=== PATIENT | male | born 1965 | race African-American/Black ===

== ENCOUNTER 2023-08-27 01:26 | Inpatient (IN) | payer MEDICAID, OTHER, SELFPAY ==
[2023-08-27] MEDS ORDERED: Heparin 10,000 UNITS/ 10 ML VIAL ONE (01:33)
[2023-08-27] MEDS ORDERED: Lidocaine 1% (PF) 30 ML VIAL ONE (01:33)
[2023-08-27] MEDS ORDERED: Nitroglycerin 50 MG/250 ML BOT 0 ML ONE (01:34)
[2023-08-27] MEDS ORDERED: Nitroglycerin 2% Ointment 1 INCH/1 GM Packet ONE (01:36)
[2023-08-27] MEDS ORDERED: Nitroglycerin 50 MG/250 ML BOT ONE (01:42)
[2023-08-27 01:44] LABS: Actual Bicarbonate (HCO3a) 19.2 mEq/L (22-28); Analyzer IN Cardio ER; Base Excess (BEa) -15.6 mEq/L (-2.0 to +3.0); Calcium, Ionized (arterial) 1.24 mmol/L (1.12-1.30); Carboxyhemoglobin (COHb) 0.4 gm% (0.0-3.0); Hematocrit-ABG 43 % (42.0-52.0); Hemoglobin (Hb) 14.5 g/dL (14.0-18.0); O2 Tension (PaO2), arterial 188.6 mmHg (80.0-100.0); Potassium - ABG Lab 5.28 mmol/L (3.70-5.30)
[2023-08-27 01:57] LABS: #Basophils 0.1 thou/uL (0.0-0.2); #Eosinphils 0.8 thou/uL (0.0-0.7); #Monocytes 1.5 thou/uL (0.11-0.59); #Neutrophils 7.6 thou/uL (1.40-6.50); %Basophils 0.4 % (0.0-1.0); %Eosinophils 4.3 % (0.0-10.0); %Lymphocytes 41.9 % (21.0-51.0); %Monocytes 7.9 % (0.0-10.0); %Neutrophils 41.3 % (42.0-75.0); Hematocrit 49.3 % (42.0-52.0); Hemoglobin 14.4 g/dL (14.0-18.0); Mean Corpuscular HGB CONC 29.2 g/dL (32.0-36.0); Mean Corpuscular Hemoglobin 25.8 pg (27.0-31.0); Mean Corpuscular Volume 88.4 fl (78.0-98.0); Mean Platelet Volume 11.5 fL (7.4-10.4); Platelet Count 315 10x3/uL (130-400); RBC Distribution Width 14.1 % (11.5-14.5); Red Blood Cell (RBC) Count 5.58 mill/uL (4.70-6.10); White Blood Cell (WBC) Count 18.4 10x3/uL (4.8-10.8)
[2023-08-27 02:09] LABS: INR-International Normal Ratio 1.2; Prothrombin Time 15.5 sec (12.0-14.7)
[2023-08-27 02:10] LABS: PTT 35.9 sec (22.9-36.1)
[2023-08-27] MEDS ORDERED: Furosemide 40 MG/4 ML VIAL ONE (02:11)
[2023-08-27 02:23] LABS: ALT (SGPT) 21 U/L (8-55); AST (SGOT) 22 U/L (5-34); Alkaline Phosphatase 99 U/L (40-110); Anion Gap 23 mmol/L (10-20); BUN (Urea Nitrogen) 41 mg/dL (8.4-25.7); Bilirubin, Total 0.3 mg/dL (0.2-1.2); Calc. Creatinine Clearance 0 mL/min (70-130); Calcium 8.2 mg/dL (7.8-10.44); Carbon Dioxide 19 mmol/L (22-29); Chloride 103 mmol/L (98-107); Estimated GFR 18; Globulin 3.2 g/dL (2.4-3.5); Glucose 230 mg/dL (70-105); Potassium 4.6 mmol/L (3.5-5.1); Protein, Total 8.2 g/dL (6.0-8.3); Sodium 140 mmol/L (136-145)
[2023-08-27 02:32] LABS: Troponin I 0.134 ng/mL (< 0.028)
[2023-08-27 02:45] LABS: Amphetamine Not Detected (NotDetected); Barbiturates Screen Not Detected (NotDetected); Benzodiazepine Screen Not Detected (NotDetected); Cocaine Metabolite Screen Not Detected (NotDetected); Methadone Not Detected (NotDetected); Methamphetamine Not Detected (NotDetected); Opiate Screen Not Detected (NotDetected); Oxycodone Screen Not Detected (NotDetected); Phencyclidine (PCP) Not Detected (NotDetected); THC/Cannabinoid Screen Not Detected (NotDetected); Tricyclic Screen Not Detected (NotDetected)
[2023-08-27 02:54] LABS: CK (CPK) 194 U/L (30-200); Lipase 35 U/L (8-78)
[2023-08-27 02:55] LABS: Acetaminophen Less than 10 mcg/mL (10.0-30.0); Alcohol Less than 10.0 mg/dL (Less than 10); Salicylate Less than 8.0 mg/dL (15.0-30.0)
[2023-08-27 03:21] LABS: SARS-CoV-2 NAA Rapid Test Not Detected (NotDetected)
[2023-08-27 03:23] LABS: Actual Bicarbonate (HCO3a) 20.5 mEq/L (22-28); Analyzer IN Cardio ER; Base Excess (BEa) -9.1 mEq/L (-2.0 to +3.0); Calcium, Ionized (arterial) 1.17 mmol/L (1.12-1.30); Carboxyhemoglobin (COHb) 0.3 gm% (0.0-3.0); Hematocrit-ABG 40 % (42.0-52.0); Hemoglobin (Hb) 13.6 g/dL (14.0-18.0); O2 Tension (PaO2), arterial 95.1 mmHg (80.0-100.0)
[2023-08-27] MEDS ORDERED: Fentanyl CADD 100 ML IV SCH (03:30)
[2023-08-27 03:46] LABS: CO2 Tension 97.8 mmHg (35.0-45.0)
[2023-08-27 03:47] LABS: CO2 Tension 61.6 mmHg (35.0-45.0); pH, Arterial 7.141 (7.35-7.45)
[2023-08-27 03:48] LABS: Potassium - ABG Lab 6.15 mmol/L (3.70-5.30)
[2023-08-27] MEDS ORDERED: Ondansetron PF 4 MG/2 ML Vial IVP PRN (04:23)
[2023-08-27] MEDS ORDERED: Ipratropium/Albuterol 3 ML NEB EZPAP PRN (04:27)
[2023-08-27 05:03] VITALS: BMI 30.5
[2023-08-27] MEDS: Azithromycin 500 MG in Sodium Chloride 0.9% 250 ML 250 ML IVPB SCH (05:30)
[2023-08-27] MEDS: cefTRIAXone\\ROCEPHIN 1 GM in Sodium Chloride 0.9% 100 ML IVPB SCH (05:33)
[2023-08-27 06:17] LABS: Anion Gap 18 mmol/L (10-20); BUN (Urea Nitrogen) 44 mg/dL (8.4-25.7); Calc. Creatinine Clearance 30 mL/min (70-130); Calcium 8.5 mg/dL (7.8-10.44); Carbon Dioxide 17 mmol/L (22-29); Chloride 107 mmol/L (98-107); Estimated GFR 17; Glucose 148 mg/dL (70-105); Magnesium 2.6 mg/dL (1.6-2.6); Potassium 5.8 mmol/L (3.5-5.1); Sodium 136 mmol/L (136-145)
[2023-08-27 06:24] LABS: Troponin I 0.374 ng/mL (< 0.028)
[2023-08-27 07:52] LABS: Actual Bicarbonate (HCO3a) 21.6 mEq/L (22-28); Base Excess (BEa) -2.3 mEq/L (-2.0 to +3.0); CO2 Tension 34.6 mmHg (35.0-45.0); Calcium, Ionized (arterial) 1.11 mmol/L (1.12-1.30); Carboxyhemoglobin (COHb) 0.5 gm% (0.0-3.0); Hematocrit-ABG 39 % (42.0-52.0); Hemoglobin (Hb) 13.2 g/dL (14.0-18.0); O2 Tension (PaO2), arterial 485.5 mmHg (80.0-100.0); pH, Arterial 7.414 (7.35-7.45)
[2023-08-27 07:54] LABS: Puncture Site RRA
[2023-08-27] MEDS ORDERED: Sodium Bicarb 50 MEQ/50 ML Abboject 8.4% SYRINGE IVP SCH (08:00)
[2023-08-27] MEDS ORDERED: Labetalol HCl 100 MG/20 ML VIAL SLOW IVP PRN (08:14)
[2023-08-27] MEDS ORDERED: niCARdipine 40MG In NaCl 40 MG/200 ML BAG IVPB SCH (08:30)
[2023-08-27] MEDS: Heparin 5,000 UNITS/ML VIAL SC SCH ×2 (08:36→21:16)
[2023-08-27] MEDS: Famotidine 20 MG TAB PER TUBE SCH (08:39)
[2023-08-27] MEDS: niCARdipine 50 MG, Admixture Fee 1 EACH in Sodium Chloride 0.9% 250 ML 230 ML IV SCH ×2 (08:44→21:42)
[2023-08-27] MEDS ORDERED: FLU VACC QS2023-24(6MOS UP)/PF 60 MCG/0.5 ML SYRINGE IM ONE (09:00)
[2023-08-27 09:06] LABS: Troponin I 0.583 ng/mL (< 0.028)
[2023-08-27 09:39] LABS: Bacteria/HPF None Seen HPF (None Seen); Bilirubin Negative (Negative); Blood, Urine Trace (Negative); Clarity Clear (Clear); Glucose, Urine (Dipstick) Normal (Negative); Ketone, Urine Negative (Negative); Leukocyte Negative Leu/uL (Negative); Nitrite Negative (Negative); Protein, Urine (Dipstick) Negative (Neg-Trace); RBC/HPF 0-3 HPF (0-3); Specific Gravity, Urine 1.008 (1.002-1.036); Squamous Epithelial None Seen HPF (0-3); Urobilinogen Normal mg/dL (Less than 2); WBC/HPF 0-3 HPF (0-3)
[2023-08-27 10:03] LABS: Creatinine, Urine 20.28 mg/dL (63-166)
[2023-08-27] MEDS ORDERED: Losartan 25 MG TAB PO SCH (10:30)
[2023-08-27] MEDS: hydrALAZINE 20 MG/ML VIAL SLOW IVP PRN ×2 (15:46→21:08)
[2023-08-27] MEDS: Carvedilol 6.25 MG TAB PO SCH (17:29)
[2023-08-27] MEDS: Acetaminophen 325 MG TAB PO PRN (21:49)
[2023-08-28] MEDS: niCARdipine 50 MG, Admixture Fee 1 EACH in Sodium Chloride 0.9% 250 ML 230 ML IV SCH ×4 (01:34→17:18)
[2023-08-28] MEDS: cefTRIAXone\\ROCEPHIN 1 GM in Sodium Chloride 0.9% 100 ML IVPB SCH (04:25)
[2023-08-28 04:59] LABS: #Monocytes 1.2 thou/uL (0.11-0.59); #Neutrophils 8.6 thou/uL (1.40-6.50); %Basophils 0.3 % (0.0-1.0); %Eosinophils 0.4 % (0.0-10.0); %Lymphocytes 11.3 % (21.0-51.0); %Monocytes 10.7 % (0.0-10.0); Hematocrit 41.2 % (42.0-52.0); Hemoglobin 13.4 g/dL (14.0-18.0); Mean Corpuscular HGB CONC 32.5 g/dL (32.0-36.0); Mean Corpuscular Hemoglobin 25.9 pg (27.0-31.0); Mean Corpuscular Volume 79.5 fl (78.0-98.0); Mean Platelet Volume 11.1 fL (7.4-10.4); Platelet Count 214 10x3/uL (130-400); RBC Distribution Width 14.4 % (11.5-14.5); Red Blood Cell (RBC) Count 5.18 mill/uL (4.70-6.10); White Blood Cell (WBC) Count 11.1 10x3/uL (4.8-10.8)
[2023-08-28 05:26] LABS: ALT (SGPT) 18 U/L (8-55); AST (SGOT) 22 U/L (5-34); Albumin 4.4 g/dL (3.5-5.0); Alkaline Phosphatase 65 U/L (40-110); Anion Gap 15 mmol/L (10-20); BUN (Urea Nitrogen) 37 mg/dL (8.4-25.7); Calc. Creatinine Clearance 38 mL/min (70-130); Calcium 9.3 mg/dL (7.8-10.44); Carbon Dioxide 24 mmol/L (22-29); Chloride 103 mmol/L (98-107); Estimated GFR 22; Globulin 2.8 g/dL (2.4-3.5); Glucose 138 mg/dL (70-105); Magnesium 2.2 mg/dL (1.6-2.6); Potassium 3.5 mmol/L (3.5-5.1); Protein, Total 7.2 g/dL (6.0-8.3); Sodium 138 mmol/L (136-145)
[2023-08-28] MEDS: Azithromycin 500 MG in Sodium Chloride 0.9% 250 ML 250 ML IVPB SCH (06:04)
[2023-08-28] MEDS: hydrALAZINE 20 MG/ML VIAL SLOW IVP PRN ×3 (06:17→17:32)
[2023-08-28] MEDS: Heparin 5,000 UNITS/ML VIAL SC SCH ×2 (08:03→20:46)
[2023-08-28] MEDS: Famotidine 20 MG TAB PER TUBE SCH (08:03)
[2023-08-28] MEDS: Carvedilol 6.25 MG TAB PO SCH ×2 (08:03→17:32)
[2023-08-28] MEDS ORDERED: Losartan 25 MG TAB PO SCH (09:00)
[2023-08-28] MEDS: Amlodipine 10 MG TAB PO SCH (09:06)
[2023-08-28] MEDS ORDERED: Carvedilol 6.25 MG TAB PO SCH (18:15)
[2023-08-29] MEDS: niCARdipine 50 MG, Admixture Fee 1 EACH in Sodium Chloride 0.9% 250 ML 230 ML IV SCH ×2 (00:51→08:31)
[2023-08-29 03:52] LABS: #Eosinphils 0.1 thou/uL (0.0-0.7); #Monocytes 1.3 thou/uL (0.11-0.59); #Neutrophils 7.9 thou/uL (1.40-6.50); %Basophils 0.3 % (0.0-1.0); %Eosinophils 0.6 % (0.0-10.0); %Lymphocytes 15.6 % (21.0-51.0); %Monocytes 11.6 % (0.0-10.0); %Neutrophils 71.4 % (42.0-75.0); Hematocrit 36.9 % (42.0-52.0); Hemoglobin 11.9 g/dL (14.0-18.0); Mean Corpuscular HGB CONC 32.2 g/dL (32.0-36.0); Mean Corpuscular Hemoglobin 25.9 pg (27.0-31.0); Mean Corpuscular Volume 80.4 fl (78.0-98.0); Platelet Count 219 10x3/uL (130-400); RBC Distribution Width 14.6 % (11.5-14.5); Red Blood Cell (RBC) Count 4.59 mill/uL (4.70-6.10); White Blood Cell (WBC) Count 11.1 10x3/uL (4.8-10.8)
[2023-08-29 04:19] LABS: ALT (SGPT) 17 U/L (8-55); AST (SGOT) 20 U/L (5-34); Albumin 4.1 g/dL (3.5-5.0); Alkaline Phosphatase 56 U/L (40-110); Anion Gap 15 mmol/L (10-20); BUN (Urea Nitrogen) 35 mg/dL (8.4-25.7); Bilirubin, Total 1.2 mg/dL (0.2-1.2); Calc. Creatinine Clearance 37 mL/min (70-130); Calcium 9.3 mg/dL (7.8-10.44); Carbon Dioxide 23 mmol/L (22-29); Chloride 102 mmol/L (98-107); Estimated GFR 22; Globulin 2.9 g/dL (2.4-3.5); Glucose 123 mg/dL (70-105); Magnesium 2.2 mg/dL (1.6-2.6); Potassium 3.5 mmol/L (3.5-5.1); Sodium 136 mmol/L (136-145)
[2023-08-29] MEDS: hydrALAZINE 20 MG/ML VIAL SLOW IVP PRN (06:48)
[2023-08-29] MEDS ORDERED: Carvedilol 6.25 MG TAB PO SCH ×3 (08:00→10:00)
[2023-08-29] MEDS: Amlodipine 10 MG TAB PO SCH (08:12)
[2023-08-29] MEDS: Heparin 5,000 UNITS/ML VIAL SC SCH ×2 (08:12→20:24)
[2023-08-29] MEDS: Famotidine 20 MG TAB PER TUBE SCH (08:12)
[2023-08-29] MEDS: cloNIDine 0.1 MG TAB PO SCH ×2 (09:08→20:57)
[2023-08-29] MEDS: Carvedilol 25 MG TAB PO SCH (17:13)
[2023-08-29] MEDS: cloNIDine 0.1 MG TAB PO PRN (17:50)
[2023-08-30 04:44] LABS: #Eosinphils 0.4 thou/uL (0.0-0.7); #Monocytes 0.9 thou/uL (0.11-0.59); %Basophils 0.1 % (0.0-1.0); %Eosinophils 5.2 % (0.0-10.0); %Lymphocytes 18.2 % (21.0-51.0); %Neutrophils 65.2 % (42.0-75.0); Hematocrit 34.9 % (42.0-52.0); Hemoglobin 11.3 g/dL (14.0-18.0); Mean Corpuscular HGB CONC 32.4 g/dL (32.0-36.0); Mean Corpuscular Hemoglobin 25.9 pg (27.0-31.0); Mean Corpuscular Volume 79.9 fl (78.0-98.0); Mean Platelet Volume 11.2 fL (7.4-10.4); Platelet Count 193 10x3/uL (130-400); RBC Distribution Width 14.3 % (11.5-14.5); Red Blood Cell (RBC) Count 4.37 mill/uL (4.70-6.10); White Blood Cell (WBC) Count 7.7 10x3/uL (4.8-10.8)
[2023-08-30 05:02] LABS: ALT (SGPT) 21 U/L (8-55); AST (SGOT) 20 U/L (5-34); Albumin 3.9 g/dL (3.5-5.0); Alkaline Phosphatase 52 U/L (40-110); Anion Gap 15 mmol/L (10-20); BUN (Urea Nitrogen) 50 mg/dL (8.4-25.7); Bilirubin, Total 0.7 mg/dL (0.2-1.2); Calc. Creatinine Clearance 29 mL/min (70-130); Calcium 9.2 mg/dL (7.8-10.44); Carbon Dioxide 23 mmol/L (22-29); Chloride 102 mmol/L (98-107); Estimated GFR 16; Globulin 2.6 g/dL (2.4-3.5); Glucose 114 mg/dL (70-105); Magnesium 2.3 mg/dL (1.6-2.6); Potassium 3.6 mmol/L (3.5-5.1); Protein, Total 6.5 g/dL (6.0-8.3); Sodium 136 mmol/L (136-145)
[2023-08-30] MEDS: Carvedilol 25 MG TAB PO SCH ×2 (08:10→16:30)
[2023-08-30] MEDS: Amlodipine 10 MG TAB PO SCH (08:10)
[2023-08-30] MEDS: Heparin 5,000 UNITS/ML VIAL SC SCH ×2 (08:10→20:29)
[2023-08-30] MEDS: cloNIDine 0.1 MG TAB PO SCH ×2 (08:10→20:29)
[2023-08-30] MEDS: Famotidine 20 MG TAB PER TUBE SCH (08:10)
[2023-08-30] MEDS ORDERED: Sodium Chloride 0.9% 1,000 ML IV SCH (08:15)
[2023-08-30] MEDS: Sodium Chloride 0.9% 1,000 ML IV SCH ×2 (17:26→20:33)
[2023-08-30] MEDS: Acetaminophen 325 MG TAB PO PRN (21:55)
[2023-08-31] MEDS: Sodium Chloride 0.9% 1,000 ML IV SCH ×3 (05:25→18:11)
[2023-08-31] MEDS: hydrALAZINE 20 MG/ML VIAL SLOW IVP PRN (05:26)
[2023-08-31 05:45] LABS: #Eosinphils 0.6 thou/uL (0.0-0.7); #Monocytes 0.8 thou/uL (0.11-0.59); #Neutrophils 3.8 thou/uL (1.40-6.50); %Basophils 0.2 % (0.0-1.0); %Eosinophils 9.5 % (0.0-10.0); %Lymphocytes 21.5 % (21.0-51.0); %Monocytes 11.7 % (0.0-10.0); %Neutrophils 56.8 % (42.0-75.0); Hematocrit 33.9 % (42.0-52.0); Hemoglobin 10.7 g/dL (14.0-18.0); Mean Corpuscular HGB CONC 31.6 g/dL (32.0-36.0); Mean Corpuscular Hemoglobin 25.7 pg (27.0-31.0); Mean Corpuscular Volume 81.3 fl (78.0-98.0); Mean Platelet Volume 11.2 fL (7.4-10.4); Platelet Count 202 10x3/uL (130-400); RBC Distribution Width 14.1 % (11.5-14.5); Red Blood Cell (RBC) Count 4.17 mill/uL (4.70-6.10); White Blood Cell (WBC) Count 6.6 10x3/uL (4.8-10.8)
[2023-08-31 06:18] LABS: Anion Gap 13 mmol/L (10-20); BUN (Urea Nitrogen) 51 mg/dL (8.4-25.7); Calc. Creatinine Clearance 35 mL/min (70-130); Carbon Dioxide 22 mmol/L (22-29); Chloride 105 mmol/L (98-107); Estimated GFR 20; Glucose 100 mg/dL (70-105); Potassium 3.5 mmol/L (3.5-5.1); Sodium 136 mmol/L (136-145)
[2023-08-31] MEDS: Amlodipine 10 MG TAB PO SCH (08:11)
[2023-08-31] MEDS: Carvedilol 25 MG TAB PO SCH ×2 (08:11→18:11)
[2023-08-31] MEDS: Famotidine 20 MG TAB PER TUBE SCH (08:12)
[2023-08-31] MEDS: cloNIDine 0.1 MG TAB PO SCH ×2 (08:12→21:07)
[2023-08-31] MEDS: Heparin 5,000 UNITS/ML VIAL SC SCH ×2 (08:13→21:07)
[2023-08-31] MEDS: hydrALAZINE 25 MG TAB PO SCH ×3 (09:24→21:07)
[2023-09-01] MEDS: cloNIDine 0.1 MG TAB PO PRN (02:03)
[2023-09-01] MEDS: hydrALAZINE 20 MG/ML VIAL SLOW IVP PRN (05:50)
[2023-09-01 05:58] LABS: #Eosinphils 0.5 thou/uL (0.0-0.7); #Monocytes 0.7 thou/uL (0.11-0.59); #Neutrophils 3.4 thou/uL (1.40-6.50); %Basophils 0.2 % (0.0-1.0); %Eosinophils 7.7 % (0.0-10.0); %Lymphocytes 24.4 % (21.0-51.0); %Monocytes 11.2 % (0.0-10.0); %Neutrophils 56.2 % (42.0-75.0); Hematocrit 31.6 % (42.0-52.0); Mean Corpuscular HGB CONC 31.6 g/dL (32.0-36.0); Mean Corpuscular Hemoglobin 25.9 pg (27.0-31.0); Mean Corpuscular Volume 81.9 fl (78.0-98.0); Mean Platelet Volume 10.5 fL (7.4-10.4); Platelet Count 205 10x3/uL (130-400); RBC Distribution Width 14.2 % (11.5-14.5); Red Blood Cell (RBC) Count 3.86 mill/uL (4.70-6.10)
[2023-09-01 06:25] LABS: Anion Gap 13 mmol/L (10-20); BUN (Urea Nitrogen) 41 mg/dL (8.4-25.7); Calc. Creatinine Clearance 39 mL/min (70-130); Calcium 8.6 mg/dL (7.8-10.44); Carbon Dioxide 21 mmol/L (22-29); Chloride 110 mmol/L (98-107); Estimated GFR 23; Glucose 92 mg/dL (70-105); Phosphorus 3.5 mg/dL (2.3-4.7); Potassium 4.1 mmol/L (3.5-5.1); Sodium 140 mmol/L (136-145)
[2023-09-01] MEDS: Heparin 5,000 UNITS/ML VIAL SC SCH ×2 (08:12→21:05)
[2023-09-01] MEDS: Famotidine 20 MG TAB PER TUBE SCH (08:16)
[2023-09-01] MEDS: hydrALAZINE 25 MG TAB PO SCH ×3 (08:16→21:04)
[2023-09-01] MEDS: cloNIDine 0.1 MG TAB PO SCH ×2 (08:16→21:05)
[2023-09-01] MEDS: Carvedilol 25 MG TAB PO SCH ×2 (08:16→16:44)
[2023-09-01] MEDS: Isosorbide Mononitrate 30 MG ER.TAB PO SCH (08:16)
[2023-09-01] MEDS: NIFEdipine XL 60 MG ER.TAB PO SCH (08:17)
[2023-09-01] MEDS: Sodium Chloride 0.9% 1,000 ML IV SCH (08:17)
[2023-09-02] MEDS: Sodium Chloride 0.9% 1,000 ML IV SCH ×3 (00:39→19:42)
[2023-09-02] MEDS: cloNIDine 0.1 MG TAB PO PRN (04:07)
[2023-09-02] MEDS: Acetaminophen 325 MG TAB PO PRN ×2 (04:10→20:50)
[2023-09-02 06:53] LABS: #Eosinphils 0.4 thou/uL (0.0-0.7); #Monocytes 0.9 thou/uL (0.11-0.59); #Neutrophils 5.1 thou/uL (1.40-6.50); %Basophils 0.3 % (0.0-1.0); %Eosinophils 5.1 % (0.0-10.0); %Lymphocytes 17.8 % (21.0-51.0); %Neutrophils 65.4 % (42.0-75.0); Hematocrit 30.2 % (42.0-52.0); Hemoglobin 9.5 g/dL (14.0-18.0); Mean Corpuscular HGB CONC 31.5 g/dL (32.0-36.0); Mean Corpuscular Hemoglobin 25.8 pg (27.0-31.0); Mean Corpuscular Volume 82.1 fl (78.0-98.0); Platelet Count 218 10x3/uL (130-400); RBC Distribution Width 14.3 % (11.5-14.5); Red Blood Cell (RBC) Count 3.68 mill/uL (4.70-6.10); White Blood Cell (WBC) Count 7.8 10x3/uL (4.8-10.8)
[2023-09-02 07:19] LABS: Anion Gap 13 mmol/L (10-20); BUN (Urea Nitrogen) 34 mg/dL (8.4-25.7); Calc. Creatinine Clearance 46 mL/min (70-130); Calcium 8.8 mg/dL (7.8-10.44); Carbon Dioxide 19 mmol/L (22-29); Chloride 110 mmol/L (98-107); Estimated GFR 28; Glucose 95 mg/dL (70-105); Potassium 4.1 mmol/L (3.5-5.1); Sodium 138 mmol/L (136-145)
[2023-09-02] MEDS: Heparin 5,000 UNITS/ML VIAL SC SCH ×2 (08:37→20:52)
[2023-09-02] MEDS: NIFEdipine XL 60 MG ER.TAB PO SCH (08:39)
[2023-09-02] MEDS: hydrALAZINE 25 MG TAB PO SCH ×3 (08:40→20:49)
[2023-09-02] MEDS: Famotidine 20 MG TAB PER TUBE SCH (08:40)
[2023-09-02] MEDS: cloNIDine 0.1 MG TAB PO SCH ×2 (08:40→20:49)
[2023-09-02] MEDS: Isosorbide Mononitrate 30 MG ER.TAB PO SCH (08:40)
[2023-09-02] MEDS: Carvedilol 25 MG TAB PO SCH ×2 (08:41→15:54)
[2023-09-03] MEDS: Acetaminophen 325 MG TAB PO PRN ×2 (04:18→09:13)
[2023-09-03 05:02] LABS: Anion Gap 12 mmol/L (10-20); BUN (Urea Nitrogen) 27 mg/dL (8.4-25.7); Calc. Creatinine Clearance 46 mL/min (70-130); Carbon Dioxide 20 mmol/L (22-29); Chloride 110 mmol/L (98-107); Estimated GFR 27; Glucose 96 mg/dL (70-105); Sodium 138 mmol/L (136-145)
[2023-09-03] MEDS ORDERED: NIFEdipine XL 90 MG ER.TAB PO SCH (09:00)
[2023-09-03] MEDS: Heparin 5,000 UNITS/ML VIAL SC SCH (09:10)
[2023-09-03] MEDS: Isosorbide Mononitrate 30 MG ER.TAB PO SCH (09:10)
[2023-09-03] MEDS: hydrALAZINE 25 MG TAB PO SCH (09:10)
[2023-09-03] MEDS: Carvedilol 25 MG TAB PO SCH (09:10)
[2023-09-03] MEDS: cloNIDine 0.1 MG TAB PO SCH (09:10)
[2023-09-03] MEDS: Famotidine 20 MG TAB PER TUBE SCH (09:10)
[2023-09-03] MEDS: Sodium Chloride 0.9% 1,000 ML IV SCH (09:13)
[2023-09-03 12:02] VITALS: BP 164/86; TEMP 98.5
== END 2023-09-03 14:34 | disposition home or self-care (01) | DRG 208 ==
LOC: ERS 01:26 → CCU 03:20 → T4-A 08-30 10:26
PROVIDERS: ADMIT Internal Medicine; ATTEND Family Medicine
PROC: 0T9B70Z Drainage of Bladder with Drainage Device, Via Natural or Artificial Opening (ICD-10-PCS; principal; 2023-08-27)
PROC: 5A1935Z Respiratory Ventilation, Less than 24 Consecutive Hours (ICD-10-PCS; 2023-08-27)
PROC: 02HV33Z Insertion of Infusion Device into Superior Vena Cava, Percutaneous Approach (ICD-10-PCS; 2023-08-27)
PROC: 0DH67UZ Insertion of Feeding Device into Stomach, Via Natural or Artificial Opening (ICD-10-PCS; 2023-08-27)
PROC: 0BH17EZ Insertion of Endotracheal Airway into Trachea, Via Natural or Artificial Opening (ICD-10-PCS; 2023-08-27)
PROC: 4A133R1 Monitoring of Arterial Saturation, Peripheral, Percutaneous Approach (ICD-10-PCS; 2023-08-27)
DX: J96.01 Acute respiratory failure with hypoxia (principal); G93.41 Metabolic encephalopathy; J18.9 Pneumonia, unspecified organism; I16.1 Hypertensive emergency; N17.9 Acute kidney failure, unspecified; I5A Non-ischemic myocardial injury (non-traumatic); N18.4 Chronic kidney disease, stage 4 (severe); E87.4 Mixed disorder of acid-base balance; N25.81 Secondary hyperparathyroidism of renal origin; J96.02 Acute respiratory failure with hypercapnia; I25.10 Atherosclerotic heart disease of native coronary artery without angina pectoris; Z79.899 Other long term (current) drug therapy; Z95.5 Presence of coronary angioplasty implant and graft; Z20.822 Contact with and (suspected) exposure to COVID-19; I50.9 Heart failure, unspecified; J45.909 Unspecified asthma, uncomplicated; E87.5 Hyperkalemia; I12.9 Hypertensive chronic kidney disease with stage 1 through stage 4 chronic kidney disease, or unspecified chronic kidney disease; Z91.148 Patient's other noncompliance with medication regimen for other reason; Z79.01 Long term (current) use of anticoagulants
CPT/HCPCS: 31500; 36415; 36556; 36600; 51702; 70450; 71045; 76770; 80048; 80053; 80306; 80307; 81001; 82140; 82550; 82570; 82805; 83690; 83735; 83880; 83970; 84100; 84145; 84300; 84443; 84481; 84484; 85025; 85610; 85730; 87040; 90471; 90686; 93005; 93010; 93306; 94002; 96365; 96366; 96375; 96376; 99292; G0008; J0360; J0456; J0696; J1644; J1940; J2001; J2405; J3010; J3490; J7050

== ENCOUNTER 2024-08-14 11:58 | Emergency (ER) | payer OTHER, SELFPAY ==
[2024-08-14] MEDS ORDERED: hydrALAZINE 20 MG/ML VIAL ONE ×2 (13:17→14:24)
[2024-08-14 13:36] LABS: #Basophils Less than 0.03 10x3/uL (0.0-0.2); %Basophils 0.4 % (0.0-1.0); %Eosinophils 3.3 % (0.0-10.0); %Lymphocytes 20.1 % (21.0-51.0); %Monocytes 9.1 % (0.0-10.0); %Neutrophils 66.7 % (42.0-75.0); Hematocrit 36.3 % (42.0-52.0); Hemoglobin 10.6 g/dL (14.0-18.0); Mean Corpuscular HGB CONC 29.2 g/dL (32.0-36.0); Mean Corpuscular Hemoglobin 25.5 pg (27.0-31.0); Mean Corpuscular Volume 87.3 fL (78.0-98.0); Mean Platelet Volume 11.3 fL (7.4-10.4); Platelet Count 148 10x3/uL (130-400); RBC Distribution Width 14.7 % (11.5-14.5); Red Blood Cell (RBC) Count 4.16 mill/uL (4.70-6.10)
[2024-08-14 13:39] LABS: ALT (SGPT) 37 U/L (8-55); AST (SGOT) 21 U/L (5-34); Albumin 3.7 g/dL (3.5-5.0); Alkaline Phosphatase 59 U/L (40-110); Anion Gap 11 mmol/L (10-20); BUN (Urea Nitrogen) 42 mg/dL (8.4-25.7); Bilirubin, Total 0.7 mg/dL (0.2-1.2); Calc. Creatinine Clearance 0 mL/min (70-130); Carbon Dioxide 19 mmol/L (22-29); Chloride 112 mmol/L (98-107); Estimated GFR 21; Globulin 2.6 g/dL (2.4-3.5); Glucose 98 mg/dL (70-105); Lipase 15 U/L (8-78); Magnesium 2.6 mg/dL (1.6-2.6); Potassium 4.8 mmol/L (3.5-5.1); Protein, Total 6.3 g/dL (6.0-8.3); Sodium 137 mmol/L (136-145)
[2024-08-14 13:44] LABS: Troponin I 0.061 ng/mL (< 0.028)
== END 2024-08-14 14:41 | disposition home or self-care (01) ==
LOC: ERS 11:58
DX: I12.0 Hypertensive chronic kidney disease with stage 5 chronic kidney disease or end stage renal disease (principal); N18.6 End stage renal disease; I25.2 Old myocardial infarction
CPT/HCPCS: 36415; 71045; 80053; 83690; 83735; 83880; 84484; 85025; 93005; 96374; 96376; J0360

== ENCOUNTER 2024-09-27 05:57 | Inpatient (IN) | payer SELFPAY ==
[2024-09-27] MEDS ORDERED: Nitroglycerin 2% Ointment 1 INCH/1 GM Packet ONE (06:18)
[2024-09-27] MEDS ORDERED: Aspirin Chewable 81 MG TAB ONE (06:46)
[2024-09-27 06:54] LABS: #Basophils Less than 0.03 10x3/uL (0.0-0.2); %Basophils 0.3 % (0.0-1.0); %Eosinophils 3.1 % (0.0-10.0); %Lymphocytes 18.1 % (21.0-51.0); %Neutrophils 66.3 % (42.0-75.0); Mean Corpuscular HGB CONC 31.3 g/dL (32.0-36.0); Mean Corpuscular Hemoglobin 24.8 pg (27.0-31.0); Mean Corpuscular Volume 79.2 fL (78.0-98.0); Mean Platelet Volume 9.3 fL (7.4-10.4); Platelet Count 161 10x3/uL (130-400); RBC Distribution Width 15.8 % (11.5-14.5); Red Blood Cell (RBC) Count 4.04 mill/uL (4.70-6.10)
[2024-09-27] MEDS ORDERED: Furosemide 40 MG (4 mL) VIAL ONE (07:24)
[2024-09-27 07:44] LABS: ALT (SGPT) 48 U/L (8-55); AST (SGOT) 48 U/L (5-34); Albumin 4.2 g/dL (3.5-5.0); Alkaline Phosphatase 71 U/L (40-110); Anion Gap 15 mmol/L (10-20); BUN (Urea Nitrogen) 32 mg/dL (8.4-25.7); Bilirubin, Total 0.7 mg/dL (0.2-1.2); Calc. Creatinine Clearance 0 mL/min (70-130); Calcium 9.1 mg/dL (7.8-10.44); Carbon Dioxide 16 mmol/L (22-29); Chloride 111 mmol/L (98-107); Estimated GFR 22; Globulin 2.7 g/dL (2.4-3.5); Glucose 101 mg/dL (70-105); Magnesium 2.4 mg/dL (1.6-2.6); Potassium 4.9 mmol/L (3.5-5.1); Protein, Total 6.9 g/dL (6.0-8.3); Sodium 137 mmol/L (136-145)
[2024-09-27 08:08] LABS: Troponin I 0.037 ng/mL (< 0.028)
[2024-09-27] MEDS ORDERED: hydrALAZINE 25 MG TAB ONE (08:41)
[2024-09-27] MEDS ORDERED: cloNIDine 0.1 MG TAB ONE ×2 (08:41→08:47)
[2024-09-27] MEDS ORDERED: Carvedilol 25 MG TAB ONE (08:41)
[2024-09-27] MEDS ORDERED: Ondansetron PF 4 MG/2 ML Vial IVP PRN (08:55)
[2024-09-27] MEDS ORDERED: Acetaminophen 325 MG TAB PO PRN (08:55)
[2024-09-27 10:13] LABS: Troponin I 0.076 ng/mL (< 0.028)
[2024-09-27 11:03] VITALS: BMI 29.5
[2024-09-27] MEDS: hydrALAZINE 25 MG TAB PO SCH (11:08)
[2024-09-27] MEDS: cloNIDine 0.1 MG TAB PO SCH (11:08)
[2024-09-27] MEDS: NIFEdipine XL 90 MG ER.TAB PO SCH (11:32)
[2024-09-27] MEDS: Isosorbide Mononitrate 30 MG ER.TAB PO SCH ×2 (11:32→21:42)
[2024-09-27] MEDS: Famotidine 20 MG TAB PO SCH (11:32)
[2024-09-27] MEDS: Hydrochlorothiazide 25 MG TAB PO SCH (14:00)
[2024-09-27] MEDS: Minoxidil 2.5 MG TAB PO SCH (14:04)
[2024-09-27] MEDS: Sodium Bicarbonate Tab 325 MG TAB PO SCH ×2 (16:16→20:48)
[2024-09-27 16:48] LABS: Bacteria/HPF None Seen HPF (None Seen); Bilirubin Negative (Negative); Blood, Urine Negative (Negative); Clarity Clear (Clear); Glucose, Urine (Dipstick) Normal (Negative); Ketone, Urine Negative (Negative); Leukocyte Negative Leu/uL (Negative); Nitrite Negative (Negative); Protein, Urine (Dipstick) Negative (Neg-Trace); RBC/HPF 0-3 HPF (0-3); Specific Gravity, Urine 1.003 (1.002-1.036); Squamous Epithelial None Seen HPF (0-3); Urobilinogen Normal mg/dL (Less than 2); WBC/HPF None Seen HPF (0-3); pH, Urine 5.5 (5.0-9.0)
[2024-09-27 17:00] LABS: Creatinine, Urine 41.63 mg/dL (63-166)
[2024-09-27] MEDS ORDERED: Carvedilol 25 MG TAB PO SCH (17:00)
[2024-09-27] MEDS: NIFEdipine XL 30 MG ER.TAB PO SCH (20:48)
[2024-09-27] MEDS: Labetalol HCl 100 MG TAB PO SCH (20:48)
[2024-09-28 04:48] LABS: #Basophils Less than 0.03 10x3/uL (0.0-0.2); %Basophils 0.1 % (0.0-1.0); %Eosinophils 0.6 % (0.0-10.0); %Lymphocytes 16.2 % (21.0-51.0); %Monocytes 12.7 % (0.0-10.0); %Neutrophils 69.9 % (42.0-75.0); Hematocrit 30.3 % (42.0-52.0); Hemoglobin 9.6 g/dL (14.0-18.0); Mean Corpuscular HGB CONC 31.7 g/dL (32.0-36.0); Mean Corpuscular Hemoglobin 24.4 pg (27.0-31.0); Mean Corpuscular Volume 77.1 fL (78.0-98.0); Mean Platelet Volume 10.3 fL (7.4-10.4); Platelet Count 202 10x3/uL (130-400); RBC Distribution Width 15.6 % (11.5-14.5); Red Blood Cell (RBC) Count 3.93 mill/uL (4.70-6.10)
[2024-09-28 05:06] LABS: ALT (SGPT) 35 U/L (8-55); AST (SGOT) 19 U/L (5-34); Albumin 3.9 g/dL (3.5-5.0); Alkaline Phosphatase 57 U/L (40-110); Anion Gap 12 mmol/L (10-20); BUN (Urea Nitrogen) 35 mg/dL (8.4-25.7); Bilirubin, Total 0.6 mg/dL (0.2-1.2); Calc. Creatinine Clearance 38 mL/min (70-130); Carbon Dioxide 21 mmol/L (22-29); Chloride 108 mmol/L (98-107); Estimated GFR 24; Globulin 2.4 g/dL (2.4-3.5); Glucose 114 mg/dL (70-105); Iron 41 ug/dL (65-175); Iron Binding Capacity, Total 228 mcg/dL (261-462); Protein, Total 6.3 g/dL (6.0-8.3); Sodium 137 mmol/L (136-145)
[2024-09-28] MEDS ORDERED: Hydrochlorothiazide 25 MG TAB PO SCH ×2 (09:00→12:28)
[2024-09-28] MEDS ORDERED: Minoxidil 2.5 MG TAB PO SCH (09:00)
[2024-09-28] MEDS: Torsemide 20 MG TAB PO SCH (09:30)
[2024-09-28] MEDS: Famotidine 20 MG TAB PO SCH (09:31)
[2024-09-28] MEDS: Dapagliflozin Propanediol 10 MG TAB PO SCH (09:31)
[2024-09-28] MEDS: NIFEdipine XL 60 MG ER.TAB PO SCH (09:31)
[2024-09-28] MEDS: Isosorbide Mononitrate 60 MG ER.TAB PO SCH (09:31)
[2024-09-28] MEDS: Sodium Ferric Gluconate 250 MG in Sodium Chloride 0.9% 250 ML 250 ML IVPB SCH (09:32)
[2024-09-28] MEDS: EPOETIN ALFA-EPBX (ESRD) 10,000 UNITS/ML VIAL SC SCH (09:36)
[2024-09-29] MEDS: hydrALAZINE 20 MG/ML VIAL SLOW IVP SCH (00:55)
[2024-09-29 04:55] LABS: #Basophils 0.03 10x3/uL (0.0-0.2); %Basophils 0.4 % (0.0-1.0); %Eosinophils 2.5 % (0.0-10.0); %Lymphocytes 21.9 % (21.0-51.0); %Monocytes 14.2 % (0.0-10.0); %Neutrophils 60.6 % (42.0-75.0); Hematocrit 33.5 % (42.0-52.0); Hemoglobin 10.8 g/dL (14.0-18.0); Mean Corpuscular HGB CONC 32.2 g/dL (32.0-36.0); Mean Corpuscular Hemoglobin 24.9 pg (27.0-31.0); Mean Corpuscular Volume 77.4 fL (78.0-98.0); Platelet Count 221 10x3/uL (130-400); RBC Distribution Width 15.8 % (11.5-14.5); Red Blood Cell (RBC) Count 4.33 mill/uL (4.70-6.10)
[2024-09-29 05:09] LABS: Magnesium 2.1 mg/dL (1.6-2.6)
[2024-09-29] MEDS: Labetalol HCl 100 MG TAB PO SCH (08:15)
[2024-09-29] MEDS: Minoxidil 2.5 MG TAB PO SCH (08:16)
[2024-09-29 12:43] LABS: Anion Gap 18 mmol/L (10-20); BUN (Urea Nitrogen) 29 mg/dL (8.4-25.7); Calc. Creatinine Clearance 35 mL/min (70-130); Calcium 9.4 mg/dL (7.8-10.44); Carbon Dioxide 21 mmol/L (22-29); Chloride 104 mmol/L (98-107); Estimated GFR 23; Glucose 91 mg/dL (70-105); Potassium 3.8 mmol/L (3.5-5.1); Sodium 139 mmol/L (136-145)
[2024-09-30 03:59] LABS: #Basophils Less than 0.03 10x3/uL (0.0-0.2); %Basophils 0.3 % (0.0-1.0); %Eosinophils 3.4 % (0.0-10.0); %Lymphocytes 21.1 % (21.0-51.0); %Monocytes 17.2 % (0.0-10.0); %Neutrophils 57.5 % (42.0-75.0); Hematocrit 33.1 % (42.0-52.0); Hemoglobin 10.4 g/dL (14.0-18.0); Mean Corpuscular HGB CONC 31.4 g/dL (32.0-36.0); Mean Corpuscular Hemoglobin 24.6 pg (27.0-31.0); Mean Corpuscular Volume 78.4 fL (78.0-98.0); Mean Platelet Volume 9.1 fL (7.4-10.4); Platelet Count 176 10x3/uL (130-400); RBC Distribution Width 15.9 % (11.5-14.5); Red Blood Cell (RBC) Count 4.22 mill/uL (4.70-6.10)
[2024-09-30 04:15] LABS: Anion Gap 16 mmol/L (10-20); BUN (Urea Nitrogen) 29 mg/dL (8.4-25.7); Calc. Creatinine Clearance 30 mL/min (70-130); Calcium 9.2 mg/dL (7.8-10.44); Carbon Dioxide 25 mmol/L (22-29); Chloride 104 mmol/L (98-107); Estimated GFR 20; Glucose 108 mg/dL (70-105); Magnesium 2.1 mg/dL (1.6-2.6); Potassium 3.7 mmol/L (3.5-5.1); Sodium 141 mmol/L (136-145)
[2024-09-30 17:34] VITALS: BP 173/99; TEMP 97.8
== END 2024-09-30 18:15 | disposition home or self-care (01) | DRG 682 ==
LOC: ERS 05:57 → SUATTDRO 05:57 → 2NO 08:40 → OBSVTOIN 09-29 14:02
PROVIDERS: ADMIT Internal Medicine; ATTEND Student in an Organized Health Care Education/Training Program
DX: N17.9 Acute kidney failure, unspecified (principal); I21.A1 Myocardial infarction type 2; E87.20 Acidosis, unspecified; I13.0 Hypertensive heart and chronic kidney disease with heart failure and stage 1 through stage 4 chronic kidney disease, or unspecified chronic kidney disease; I31.39 Other pericardial effusion (noninflammatory); I16.1 Hypertensive emergency; I50.32 Chronic diastolic (congestive) heart failure; I25.10 Atherosclerotic heart disease of native coronary artery without angina pectoris; N18.4 Chronic kidney disease, stage 4 (severe); J45.909 Unspecified asthma, uncomplicated; D63.1 Anemia in chronic kidney disease; I77.819 Aortic ectasia, unspecified site; Z95.5 Presence of coronary angioplasty implant and graft; Z79.899 Other long term (current) drug therapy
CPT/HCPCS: 36415; 71045; 71250; 80048; 80053; 81001; 82570; 82728; 83540; 83550; 83735; 83880; 84100; 84156; 84300; 84484; 84540; 85025; 93005; 93010; 93306; 96374; J0360; J1940; J2916; J7050; Q5105